=== PATIENT | female | born 1940 | race Caucasian/White ===

== ENCOUNTER → 2016-06-28 | Outpatient (CLI) | payer MEDICARE, OTHER ==
[~2016-06-28] MED LIST: BACL-1 PO; FLUO20TA PO; FURO-153 PO; IOHEXOL 300 MG/ML 100ml INJECTION ONE; MULT-806 PO; NORMAL SALINE 100 ML ONE; POTA10CA37 PO; SALINE FLUSH 10ml SYRINGE ONE; [UNRECOGNIZED DRUG - CODE] PO
--- NOTE | 2016-06-28 15:33 | DI ---
Indication: ITS.REASON: R19.01 GB MASS PROCEDURE: CT ABDOMEN W/CONTRAST: Encounter: Initial Comparison: Outside ultrasound report dated June 26, 2016 Technique: Axial CT images were performed through the abdomen after the administration of intravenous contrast. Coronal and sagittal two-dimensional reformats. Automated Exposure Control and Iterative Reconstruction dose reducing techniques were utilized. Contrast: Omnipaque 300 100 mL Findings: Linear atelectasis or scarring in the right lower lobe. Mild bronchiectasis in the lower lobes as well. The liver shows several low-attenuation lesions probably representing cysts described on the comparison report. The largest in the right lobe on image #27 measures 1.8 cm in diameter. No enhancing liver masses identified. No evidence of bile duct dilatation. The gallbladder is filled with numerous small gallstones. I do not see a definite enhancing mass within the gallbladder or obvious gallbladder wall thickening. The spleen, partially fatty replaced pancreas and adrenal glands are within normal limits. Small nonobstructing lower pole left renal stone. Small probable right renal cysts. No abdominal lymphadenopathy. The visualized loops of small and large bowel within the abdomen are within normal limits. The appendix is normal. 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 Scoliosis and degenerative change in the lumbar spine. Impression: 1. Extensive cholelithiasis without CT evidence of a gallbladder mass. 2. Probable hepatic and renal cysts. .
== END ==
LOC: IMA 13:15
PROVIDERS: ATTEND Family Medicine
DX: K80.20 Calculus of gallbladder without cholecystitis without obstruction (principal); R19.01 Right upper quadrant abdominal swelling, mass and lump
CPT/HCPCS: 74160; J7050; Q9967